=== PATIENT | male | born 1965 | race Caucasian/White ===

== ENCOUNTER 2021-01-12 12:43 | Emergency (ER) | payer OTHER ==
[~2021-01-12 12:43] MED LIST: CYCLOBENZAPRINE10 MG PO; PERCOCET 5-3251 EACH PO; TRAMADOL HCL50 MG PO; ZOFRAN4 MG PO
[2021-01-12 14:10] LABS: BASOPHIL 0.8 % (0-2); EOSINOPHIL 3.9 % (0-5); HCT 49.6 % (42.0-52.0); HGB 16.6 g/dl (13.2-18.0); LYMPHOCYTE 27.3 % (15-48); MCH 31.7 pg (25.0-31.0); MCHC 33.5 g/dL (32.0-36.0); MCV 94.7 fL (78.0-100.0); MONOCYTE 4.4 % (0-12); MPV 11.1 fL (6.0-9.5); NEUTROPHIL 63.1 % (41-80); NRBC 0; PLT 153 K/uL (150-400); RBC 5.24 M/uL (4.70-6.00); RDW 13.4 % (11.5-14.0); WBC 6.4 K/uL (4.0-10.5)
[2021-01-12 14:26] LABS: ALBUMIN 3.9 g/dL (3.4-5.0); BILIRUBIN - TOTAL 0.6 mg/dL (0.2-1.0); BUN/CREAT RATIO (CALC) 12.5 RATIO; CREATININE 1.12 mg/dL (0.67-1.17); GLOBULIN (CALCULATION) 3.7 g/dL; POTASSIUM 4.1 mmol/L (3.5-5.1); TOTAL PROTEIN 7.6 g/dL (6.4-8.2)
[2021-01-12 14:34] LABS: LACTIC ACID 1.8 mmol/L (0.4-1.9)
[2021-01-12 15:16] LABS: BILIRUBIN NEGATIVE (NEGATIVE); BLOOD NEGATIVE Ery/uL (NEGATIVE); CLARITY CLEAR (CLEAR); COLOR YELLOW (YELLOW); GLUCOSE (U) NORMAL (NORMAL); LEUKOCYTES NEGATIVE Leu/uL (NEGATIVE); NITRITE NEGATIVE (NEGATIVE); PROTEIN NEGATIVE (NEGATIVE); SPECIFIC GRAVITY >=1.030 (1.001-1.030); UROBILINOGEN 0.2 mg/dL (0.2-1.0); pH 5.5 (5.0-9.0)
[2021-01-12] MEDS ORDERED: MEDROL 4MG DOSEP4 MG PO (16:00)
[2021-01-12] MEDS ORDERED: NORCO 5-325 TA1 EACH PO (16:00)
== END 2021-01-12 16:49 | disposition home or self-care (01) ==
LOC: FER 12:43
PROVIDERS: Emergency Medicine
DX: M51.36 Other intervertebral disc degeneration, lumbar region (principal); E66.9 Obesity, unspecified; F17.200 Nicotine dependence, unspecified, uncomplicated; Z87.442 Personal history of urinary calculi; Z88.6 Allergy status to analgesic agent
CPT/HCPCS: 36415; 72131; 80053; 81003; 83605; 85025; J1170; J2405

== ENCOUNTER 2021-02-26 18:17 | Emergency (ER) | payer OTHER ==
[~2021-02-26 18:17] MED LIST changes: +MEDROL 4MG DOSEP4 MG PO; +NORCO 5-325 TA1 EACH PO
[2021-02-26 19:13] LABS: BILIRUBIN NEGATIVE (NEGATIVE); BLOOD NEGATIVE Ery/uL (NEGATIVE); CLARITY CLEAR (CLEAR); COLOR YELLOW (YELLOW); GLUCOSE (U) NORMAL (NORMAL); LEUKOCYTES NEGATIVE Leu/uL (NEGATIVE); NITRITE NEGATIVE (NEGATIVE); PROTEIN 1+ mg/dL (NEGATIVE); SPECIFIC GRAVITY >=1.030 (1.001-1.030); UROBILINOGEN 0.2 mg/dL (0.2-1.0); pH 5.5 (5.0-9.0)
[2021-02-26 19:18] LABS: BASOPHIL 0.6 % (0-2); HCT 44.8 % (42.0-52.0); HGB 15.3 g/dl (13.2-18.0); MCH 32.1 pg (25.0-31.0); MCHC 34.2 g/dL (32.0-36.0); MCV 94.1 fL (78.0-100.0); MPV 10.9 fL (6.0-9.5); NEUTROPHIL 62.1 % (41-80); NRBC 0; PLT 137 K/uL (150-400); RBC 4.76 M/uL (4.70-6.00); RDW 13.4 % (11.5-14.0); WBC 6.9 K/uL (4.0-10.5)
[2021-02-26 19:19] LABS: SPERM PRESENT
[2021-02-26 19:30] LABS: BUN/CREAT RATIO (CALC) 10.3 RATIO; CREATININE 1.26 mg/dL (0.67-1.17); POTASSIUM 3.7 mmol/L (3.5-5.1)
[2021-02-26] MEDS ORDERED: FLOMAX0.4 MG PO (21:40)
[2021-02-26] MEDS ORDERED: CYCLOBENZAPRINE10 MG PO (21:40)
== END 2021-02-26 21:54 | disposition home or self-care (01) ==
LOC: FER 18:17
PROVIDERS: Nurse Practitioner Family
DX: R10.9 Unspecified abdominal pain (principal); I10 Essential (primary) hypertension; Z88.5 Allergy status to narcotic agent; Z88.6 Allergy status to analgesic agent
CPT/HCPCS: 36415; 80048; 81001; 85025; J2270; J7030

== ENCOUNTER 2021-03-01 14:08 | Emergency (ER) | payer OTHER ==
[~2021-03-01 14:08] MED LIST changes: +FLOMAX0.4 MG PO
[2021-03-01 14:58] LABS: BILIRUBIN NEGATIVE (NEGATIVE); BLOOD NEGATIVE Ery/uL (NEGATIVE); CLARITY CLEAR (CLEAR); COLOR YELLOW (YELLOW); GLUCOSE (U) NORMAL (NORMAL); LEUKOCYTES NEGATIVE Leu/uL (NEGATIVE); NITRITE NEGATIVE (NEGATIVE); PROTEIN NEGATIVE (NEGATIVE); SPECIFIC GRAVITY 1.025 (1.001-1.030)
== END 2021-03-01 16:30 | disposition left against medical advice (07) ==
LOC: FER 14:08
PROVIDERS: Emergency Medicine
DX: M54.9 Dorsalgia, unspecified (principal); Z53.8 Procedure and treatment not carried out for other reasons
CPT/HCPCS: 81003